=== PATIENT | female | born 1990 | race Caucasian/White ===

== ENCOUNTER 2016-12-18 10:23 | Inpatient (IN) | payer OTHER ==
[2016-12-18] VITALS (39 sets, daily range): BP systolic 92–141; BP diastolic 50–100; PULSE 77–116; RESP 18–20; TEMP 97.8–99.3
[2016-12-18] MEDS ORDERED: NS 1000 ML IV PRN (11:00)
[2016-12-18] MEDS ORDERED: LACTATED RINGER'S 1000 ML INJ 1,000 ML IV SCH (11:00)
[2016-12-18] MEDS ORDERED: LACTATED RINGER'S 1000 ML IV SCH (11:00)
[2016-12-18] MEDS ORDERED: NS 500 ML BOLUS IV PRN (11:15)
[2016-12-18] MEDS ORDERED: LIDOCAINE HCL 1% 50 ML VIAL INFIL PRN (11:15)
[2016-12-18] MEDS ORDERED: LIDOCAINE HCL 1% 50 ML VIAL I-DERMAL PRN (11:15)
[2016-12-18] MEDS ORDERED: MISOPROSTOL 25 MCG SUPP VAGINAL ONE (11:15)
[2016-12-18] MEDS ORDERED: OXYTOCIN 30 UNITS 500ML PREMIX IV ONE (11:15)
[2016-12-18] MEDS ORDERED: LACTATED RINGER'S 1000 ML BOLUS IV PRN (11:15)
[2016-12-18] MEDS ORDERED: CITRIC ACID-SODIUM CITRATE LIQ 30 ML UDC PO SCH (11:15)
[2016-12-18] MEDS ORDERED: MINERAL OIL 10 ML VIAL TOP PRN (11:15)
[2016-12-18] MEDS ORDERED: ONDANSETRON HCL 4 MG/2 ML VIAL IV PRN (11:15)
[2016-12-18 12:19] LABS: AUTOMATED NEUTROPHIL # 7.9 TH/MM3 (1.8-7.7); BASOPHIL % 0.2 % (0.0-2.0); EOSINOPHIL % 0.5 % (0.0-4.0); HEMATOCRIT 34.5 % (35.0-46.0); HEMO FLAGS DIFF FINAL; LYMPHOCYTE # 1.4 TH/MM3 (1.0-4.8); MEAN CELL VOLUME 90.3 FL (80.0-100.0); MEAN CORPUSCULAR HEMOGLOBIN 31.3 PG (27.0-34.0); MEAN CORPUSCULAR HGB CONC 34.6 % (32.0-36.0); MONO % 7.3 % (0.0-8.0); PLATELET COUNT 166 TH/MM3 (150-450); RED BLOOD COUNT 3.82 MIL/MM3 (4.00-5.30); RED CELL DISTRIBUTION WIDTH 14.2 % (11.6-17.2); WHITE BLOOD COUNT 10.1 TH/MM3 (4.0-11.0)
[2016-12-18 12:36] LABS: BACTERIA, URINE FEW /hpf; BLOOD, URINE TRACE (NEG); COMMENT (UR) CULT NOT INDICATED; CULTURE IF INDICATED CULT NOT INDICATED; GLUCOSE,URINE NEG (NEG); KETONE, URINE NEG (NEG); MUCUS URINE FEW /lpf (OCC); NITRITE,URINE NEG (NEG); SQUAMOUS EPITHELIAL CELL URINE 1 /hpf (0-5); URINE COLOR YELLOW (YELLW/STRAW)
--- NOTE | 2016-12-18 15:23 | PD.LABORPN ---
Subjective Subjective pt feeling comfortable, irregular contractions, very mild, 1/10 pain scale Objective Vital Signs Vital Signs Date Time Temp Pulse Resp B/P Pulse Ox O2 Delivery O2 Flow Rate FiO2 12/18/16 11:56 90 110/81 12/18/16 10:45 98.1 18 12/18/16 10:38 90 123/76 Objective Pelvic Exam: Cervix: [mid] Dilatation: [3] Effacement: [50] Station: [-2] Presentation: [vtx] Membranes: AROM'd this check, clear Uterine Contractions: [irreg] FHT's: Category: [I] Baseline: [140s] Reactive: [y] Variability: [y] Decels: [n] Assessment/Plan Problem List: (1) Term Assessment and Plan 26 yo G1 with mendoza IUP at 40w1d, admit by Dr. Gerber for favorable Boggs score & term for induction 1) IOL: s/p cytotec x 1 at noon; AROM'd this check, will plan pitocin as needed , IUPC as needed 2) GBS neg 3) status: Cat I tracing, vtx note: Dr. Gerber dictated H&P, is it not yet available in system Ava Villavicencio MD Dec 18, 2016 15:23
[2016-12-18] MEDS ORDERED: OXYTOCIN 30 UNITS-500ML PREMIX 500 ML IV SCH (16:30)
[2016-12-18] MEDS ORDERED: fentaNYL 2MCG-BUPIV 0.125% INJ 100 ML ONE (17:37)
[2016-12-18] MEDS ORDERED: ePHEDrine/NS 25 MG/5 ML SYR ONE ×2 (17:41→17:55)
[2016-12-18] MEDS ORDERED: BUPIVACAINE HCL PF 0.25% 10 ML VIAL ONE ×2 (17:54→23:46)
[2016-12-18] MEDS ORDERED: ePHEDrine/NS 50 MG/5 ML SYR IV PRN (18:45)
[2016-12-18] MEDS ORDERED: DO NOT ADMINISTER ANTICOAGULANTS XX PRN (18:45)
[2016-12-18] MEDS ORDERED: NO SYSTEM NARCOTICS XX PRN (18:45)
[2016-12-18] MEDS ORDERED: fentaNYL 2MCG-BUPIV 0.125% INJ 100 ML EPIDURAL SCH (18:45)
--- NOTE | 2016-12-19 00:53 | PD.OB.DELI ---
Delivery Date: Dec 19, 2016 Anesthesia: Epidural Episiotomy: Midline Vaginal Delivery: Vacuum Presentation: Occiput posterior Nuchal Cord: None Delayed cord clamping (45 sec): No : Male One Minute : 8 Five Minute : 9 Weight: 8# Care: Spontaneous crying, Responded to stimulation Placenta: Spontaneous delivery, Intact, 3 vessel cord Laceration: Episiotomy (midline), 2 deg Repair: Chromic running Additional Information vacuum applied with one pop-off; successful Ava River MD Dec 19, 2016 00:53
[2016-12-19 00:55] VITALS: BP 114/64; PULSE 82; RESP 18
--- NOTE | 2016-12-19 00:55 | HHI.DCPOC ---
Discharge Care Plan Diagnosis: (1) Status post vacuum-assisted vaginal delivery Your Health Problems Are: Vaginal delivery Report Symptoms to Your Doctor -Temperate above 100.5 degrees -Redness, of incision or excessive or foul smelling drainage -Unusual pain or calf pain -Increased vaginal bleeding -Painful or difficulty urinating -Feelings of extreme sadness or anxiety after 2 weeks Goals to Promote Your Health * To prevent worsening of your condition and complications * To maintain your health at the optimal level Directions to Meet Your Goals Take your medications as prescribed Follow your dietary instruction Follow activity as directed Ensure plenty of rest for recovery Drink fluids for hydration Keep your appointments as scheduled Take your immunizations and boosters as scheduled If your symptoms worsen call your PCP, if no PCP go to Urgent Care Center or Emergency Room Smoking is Dangerous to Your Health. Avoid second hand smoke Call the 24-hour crisis hotline for domestic abuse at Ava Villavicencio MD Dec 19, 2016 00:55
[2016-12-19] MEDS ORDERED: IBUP-232 PO (00:56)
[2016-12-19] MEDS ORDERED: SENN1TAB PO (00:56)
[2016-12-19] MEDS ORDERED: oxyCODONE/ACETAMINOPHEN 5 MG/325 MG TAB PO PRN (01:00)
[2016-12-19] MEDS ORDERED: ACETAMINOPHEN 325 MG TAB PO PRN (01:00)
[2016-12-19] MEDS ORDERED: SODIUM CHLORIDE 0.9% FLUSH 5 ML FLUSH IV SCH (01:00)
[2016-12-19] MEDS ORDERED: ALUMINUM/MAGNESIUM/SIMETH 30 ML CUP PO PRN (01:00)
[2016-12-19] MEDS ORDERED: SODIUM CHLORIDE 0.9% FLUSH 5 ML FLUSH IV PRN (01:00)
[2016-12-19] MEDS ORDERED: ONDANSETRON ODT 4 MG TAB PO PRN (01:00)
[2016-12-19] MEDS ORDERED: WITCH HAZEL 50%/GLYCERIN 12.5% 40 PAD JAR TOPICAL PRN (01:00)
[2016-12-19] MEDS ORDERED: BENZOCAINE 20% TOPICAL SPRAY 60 ML CAN TOPICAL PRN (01:00)
[2016-12-19] MEDS ORDERED: ZOLPIDEM TARTRATE 5 MG TAB PO PRN (01:00)
[2016-12-19 01:10] VITALS: RESP 18
[2016-12-19 01:25] VITALS: RESP 18
[2016-12-19] MEDS ORDERED: ONDANSETRON HCL 4 MG/2 ML VIAL ONE (02:30)
[2016-12-19] MEDS: IBUPROFEN 600 MG TAB PO PRN ×4 (03:01→21:06)
[2016-12-19] MEDS: oxyCODONE/ACETAMINOPHEN 5 MG/325 MG TAB PO PRN ×4 (03:02→21:05)
[2016-12-19 03:55] VITALS: BP 110/67; PULSE 78; RESP 18; TEMP 98
[2016-12-19] MEDS ORDERED: AMMONIA AROMATIC INHALANT 0.33 ML ONE (05:11)
[2016-12-19 08:00] VITALS: BP 123/71; PULSE 100; RESP 18; TEMP 98.4
[2016-12-19] MEDS: DOCUSATE SODIUM 50 MG/SENNA 8.6 MG TAB PO SCH ×2 (09:00→21:06)
[2016-12-19] MEDS ORDERED: DIPHTH/TETANUS/ACEL PERTUSSIS (BOOSTER) 0.5 ML VIAL/PFS IM ONE (16:00)
[2016-12-19] MEDS ORDERED: MEASLES, MUMPS, RUBELLA VACCINE 0.5 ML VIAL SQ ONE (16:00)
[2016-12-19 19:41] VITALS: BP 115/71; PULSE 84; RESP 18; TEMP 98
[2016-12-20] MEDS: IBUPROFEN 600 MG TAB PO PRN ×2 (03:03→08:48)
[2016-12-20] MEDS ORDERED: OXYC1TAB63 PO (09:38)
--- NOTE | 2016-12-20 09:45 | HHI.OB ---
Subjective Post Day: 1 Remarks s/p VAVD at just after midnight yesterday Objective Vitals/I&O Vital Signs Date Time Temp Pulse Resp B/P Pulse Ox O2 Delivery O2 Flow Rate FiO2 12/19/16 19:41 98.0 84 18 115/71 Objective Remarks GENERAL: Well-nourished, well-developed patient. CARDIOVASCULAR: Regular rate and rhythm without murmurs, gallops, or rubs. RESPIRATORY: Breath sounds equal bilaterally. No accessory muscle use. ABDOMEN/GI: Abdomen soft, non-tender. Fundus: Firm, non-tender at umbilicus. GENITOURINARY: Light bleeding. EXTREMITIES: No cyanosis or edema, non-tender, without signs of DVT. Medications and IVs Current Medications Medications (Trade) Dose Ordered Sig/Rell Route Start Time Stop Time Status Last Admin (NS Flush) 2 ml BID IV 12/19/16 01:00 (NS Flush) 2 ml UNSCH PRN IV 12/19/16 01:00 (Tylenol) 650 mg Q4H PRN PO 12/19/16 01:00 (Motrin) 600 mg Q6H PRN PO 12/19/16 01:00 12/20/16 08:48 (Percocet 5-325 Mg) 1 tab Q4H PRN PO 12/19/16 01:00 12/20/16 06:44 (Percocet 5-325 Mg) 2 tab Q4H PRN PO 12/19/16 01:00 12/19/16 21:05 (Americaine 20% Top Spr) 1 spray Q4H PRN TOPICAL 12/19/16 01:00 12/19/16 21:07 (Tucks Pads) 1 applic QID PRN TOPICAL 12/19/16 01:00 12/19/16 03:02 (Marlen-Colace) 2 tab Q12H PO 12/19/16 09:00 12/19/16 21:06 (Ambien) 5 mg HS PRN PO 12/19/16 01:00 (Mag-Al Plus Susp Liq) 15 ml Q8H PRN PO 12/19/16 01:00 (Zofran Odt) 4 mg Q6H PRN PO 12/19/16 01:00 Assessment/Plan Problem List: (1) Status post vacuum-assisted vaginal delivery (2) Term Assessment and Plan PPD#1, already >30 hours desires d/c to home today cleared by peds reviewed PP precautions, activity restrictions will see in office in 2 wks for mood check & 6 wks for final PP visit Discharge Planning routine Ava Villavicencio MD Dec 20, 2016 09:45
== END 2016-12-20 12:10 | disposition home or self-care (01) | DRG 775 ==
LOC: H2EA 10:23 → H1EA 12-19 03:36
PROVIDERS: ADMIT Obstetrics & Gynecology; ATTEND Obstetrics & Gynecology
PROC: 10907ZC Drainage of Amniotic Fluid, Therapeutic from Products of Conception, Via Natural or Artificial Opening (ICD-10-PCS; 2016-12-18)
PROC: 3E0P7GC Introduction of Other Therapeutic Substance into Female Reproductive, Via Natural or Artificial Opening (ICD-10-PCS; 2016-12-18)
PROC: 00HU33Z Insertion of Infusion Device into Spinal Canal, Percutaneous Approach (ICD-10-PCS; 2016-12-18)
PROC: 3E0R3CZ (ICD-10-PCS; 2016-12-18)
PROC: 10D07Z6 Extraction of Products of Conception, Vacuum, Via Natural or Artificial Opening (ICD-10-PCS; principal; 2016-12-19)
PROC: 0W8NXZZ Division of Female Perineum, External Approach (ICD-10-PCS; 2016-12-19)
DX: O48.0 Post-term pregnancy (principal); Z37.0 Single live birth; Z3A.40 40 weeks gestation of pregnancy
CPT/HCPCS: 59025; 81001; 85025; 86900; 86901; 90715; J2405; J2590; J3010; J7120

== ENCOUNTER 2018-05-23 14:40 | Inpatient (IN) ==
[2018-05-23] MEDS ORDERED: Morphine Inj 4 MG/ML Vial IV.PUSH ONE ×2 (15:17→21:49)
[2018-05-23] MEDS ORDERED: Sod Chloride 0.9% Inj 1,000 ML IV.SIG ONE (15:17)
--- NOTE | 2018-05-23 15:43 | ED ---
HPI General Chief Complaint: Abdominal Pain Stated Complaint: medical Time Seen by Provider: 05/23/18 15:17 Source: patient Mode of arrival: ambulatory Limitations: no limitations History of Present Illness MD complaint: abdominal pain Onset (ago): hour(s) (2) Pain Consistency: constant Location: RLQ Severity: severe Quality: sharp Radiation: none Migration to: no migration Relieving factors: nothing Exacerbating factors: nothing Context: other (about 16 weeks ) Associated symptoms: nausea and vomiting Related Data Patient : Yes Home Medications Medication Instructions Recorded Confirmed vit,[id number] 1 tab PO DAILY 05/23/18 05/23/18 [Prenatabs FA] Previous Rx's Medication Instructions Recorded meperidine [Demerol] 50 mg PO Q4-6H PRN #10 tab 05/25/18 Allergies Allergy/AdvReac Type Severity Reaction Status Date / Time cefepime Allergy Severe Anaphylaxis Verified 05/24/18 01:58 ceftaroline fosamil Allergy Severe Anaphylaxis Verified 05/24/18 01:58 Review of Systems Except as stated in HPI: all other systems reviewed are negative [facility] Medical History Medical History No significant past medical history (Acute) Surgical History Surgical History Hx of appendectomy (Acute) Hx of tonsillectomy (Acute) Social History Social History Substance History: No History of Abuse Second Hand Smoke Exposure: No Smoking Status: Never smoker How Often Do You Have a Drink Containing Alcohol: Never Recent Travel in [facility] within the Last 8 Weeks: No Exam Const General: healthy appearing and acute distress severe Nutritional Appearance: average body habitus Orientation: alert, awake and oriented x3 HENMT Head: normal to inspection, normocephalic and atraumatic Eyes General: appearance normal, both eyes and all related structures EOM: EOM intact bilaterally Neck Neck: full ROM and supple Chest Chest: normal inspection of the chest Resp Effort & Inspection: normal respiratory effort and able to speak in complete sentences Cardio Rate: regular rate Rhythm: regular rhythm GI Inspection: normal to inspection Palpation: tender in the RLQ Speculum Exam - Vagina: normal appearance of the vagina Speculum Exam - Cervix: normal appearance of the cervix Back/Spine/Pelvis Cervical Spine: cervical ROM normal Thoracic/Lumbar Spine: thoraco-lumbar ROM normal Skin General: no rashes or lesions noted and turgor normal Neuro General: alert, awake, oriented x3, moves all extremities and CN's II-XI intact bilaterally Extrem General: normal to inspection and full ROM Psych Appearance: grossly normal Mental Status: mental status grossly normal Speech and Movement: speech and movement normal Mood: congruent mood Affect: anxious affect Attitude: cooperative Thought Process: normal Thought Content: normal Judgment: judgment good Procedures Ultrasound POC Ultrasound Procedure: Emergency Department Pelvic ultrasound was performed with patient consent. The curvilinear probe was used in the transverse and sagittal views within the suprapubic region revealing + intrauterine . heart tones and movement were noted. I was unable to calculate the heart rate because of both patient and movement. However, the heart rate appeared normal. Course Reevaluation(s) Reevaluation #1: Patient reports her pain is not any better following morphine. I have ordered Dilaudid. Time: 16:02 Initial Documented Vital Signs Pulse Oximetry 100 05/23/18 15:44 Last Documented Vital Signs Temperature 97.8 F 05/25/18 08:00 Pulse Rate 90 05/25/18 08:05 Respiratory Rate 17 05/25/18 08:00 Blood Pressure 111/61 05/25/18 08:05 Pulse Oximetry 100 05/24/18 06:47 Critical Care Time Critical Care Time: Yes Total Critical Care Time: 45 Attestation: Aggregate critical care time was 45 minutes. Time to perform other separately billable procedures was not included in the critical care time. My time did not include minutes spent treating any other patients simultaneously or on activities that did not directly contribute to the patient's treatment. The services I provided to this patient were to treat and/or prevent clinically significant deterioration that could result in: , decompensation, deterioration I provided critical care services requiring my management, as noted below: Chart data review, documentation time, medication orders and management, vital sign assessments/reviewing monitor data, ordering and reviewing lab tests, ordering and interpreting/reviewing x-rays and diagnostic studies, care of the patient and discussion of the patient with the admitting physicians. Sign Out Sign Out Data: Patient Sign Out occurred on 05/23/18 at 17:18. Patient's care was discussed, and care was transferred from Bhargavi Allen to Marian Hammonds. Sign Out Comment: This is a patient who is almost 16 weeks by dates who presents with the acute onset of severe right lower quadrant abdominal pain. UA and ultrasound are pending. Last updated by Bhargavi Allen at 05/23/18 17:16 Post-Handoff Eval: Patient with sent out to me by Dr. Allen at change of shift. Patient pending UA as well as pelvic US Pelvic ultrasound showed prominence of the collecting system of the right kidney and a mild amount of perinephric fluid. UA: few bacteria, few mucous, neg nitrites, 80 ketones, neg leuk esterase Patient with continued pain, crying on eval. she has received morphine as well as Dilaudid for her pain with mild relief. MRI of abdomen ordered. MRI of abdomen with moderate hydronephrosis and dilation of proaximal right ureter down to the level of L3. There is perinephric fluid suggesting pyelosinus extravasation - this suggests possibility of an obstructing stone. I did perform a pelvic exam with RN at bedside, patient with no CMT or adnexal tenderness, I do not think that patient has ovarian torsion Patient describes her pain worse than being in labor with her first child. Reports relief when she has morphine for an hour and then reports return of pain. Patient's pain most likely from the kidney stone as all studies suggest hydronephrosis of the right ureter. Patients subway train driver is Dr. Villavicencio Case reviewed with Dr. Castanon who request admission to medicine service for pain control Case reviewed with Dr. Thapa who accepts pt to service Medical Decision Making MDM Narrative Medical decision making narrative: This patient is about 16 weeks . She presents with the acute onset of right lower quadrant abdominal pain. It is associated with some nausea and vomiting. She denies any vaginal discharge or bleeding. She reports that the pain has been constant and severe since its onset. She states that she has had a previous and that the pain does not feel like contractions. She appears to be in obvious distress related to her pain. An IV has been started and she has been given IV morphine. She refused Zofran because of . She is concerned about defects. Abdominal ultrasound is pending. Routine abdominal pain labs are also pending. Differential Diagnosis Differential Diagnosis: Differential diagnosis of abdominal pain includes but is not limited to gastritis, pancreatitis, hepatitis, gastroenteritis, constipation, urinary retention, peptic ulcer disease, diverticulitis or appendicitis Lab Data Lab results reviewed: Yes I reviewed the patient's lab results. Result diagrams: 05/25/18 05:10 07/18/18 05:10 Lab Results 05/23/18 05/23/18 05/23/18 Range/Units 15:50 15:50 20:05 WBC 12.6 H (4.0-11.0) th/mm3 RBC 4.32 (4.00-5.30) mil/mm3 Hgb 13.4 (11.6-15.3) gm/dL Hct 39.4 (35.0-46.0) % MCV 91.2 (80.0-100.0) fL MCH 30.9 (27.0-34.0) pg MCHC 33.9 (32.0-36.0) % RDW 13.7 (11.6-17.2) % Plt Count 212 (150-450) th/mm3 MPV 9.3 (7.0-11.0) fL Neut % (Auto) 91.1 H (16.0-70.0) % Lymph % (Auto) 5.6 L (9.0-44.0) % [place] % (Auto) 3.1 (0.0-8.0) % Eos % (Auto) 0.0 (0.0-4.0) % Baso % (Auto) 0.2 (0.0-2.0) % Neut # (Auto) 11.5 H (1.8-7.7) th/mm3 Lymph # (Auto) 0.7 L (1.0-4.8) th/mm3 Knott # (Auto) 0.4 (0.0-0.9) th/mm3 Eos # (Auto) 0.0 (0.0-0.4) th/mm3 Baso # (Auto) 0.0 (0.0-0.2) th/mm3 WBC Differential . Differential Comment Auto diff final Sodium 139 (136-145) meq/L Potassium 3.4 L (3.5-5.1) meq/L Chloride 105 (98-107) meq/L Carbon Dioxide 19.2 L (21.0-32.0) meq/L Anion Gap 15 (5-15) meq/L BUN 8 (7-18) mg/dL Creatinine 0.53 (0.50-1.00) mg/dL Estimated GFR Greater than 89 (>89) mL/min Random Glucose 108 H (74-106) mg/dL Calcium 8.8 (8.5-10.1) mg/dL Total Bilirubin 0.3 (0.2-1.0) mg/dL AST 14 L (15-37) U/L ALT 25 (10-53) U/L Alkaline Phosphatase 52 (45-117) U/L Total Protein 7.3 (6.4-8.2) g/dL Albumin 3.9 (3.4-5.0) g/dL Urine Color Yellow (Yellw/Straw) Urine Clarity Clear (Clear) Urine pH 6.0 (5.0-8.5) Ur Specific [place] 1.015 (1.002-1.035) Urine Protein Negative (Neg-Trace) mg/dL Urine Glucose (UA) 50 (Negative) mg/dL Urine Ketones 80 or greater (Negative) mg/dL Urine Occult Blood Negative (Negative) Urine Nitrate Negative (Negative) Urine Bilirubin Negative (Negative) Urine Urobilinogen Less than 2 (Less than 2) mg/dL Ur Leukocyte Esterase Negative (Negative) Urine RBC 1 (0-3) /hpf Urine WBC 2 (0-5) /hpf Ur Squamous Epith Cells <1 (0-5) /hpf Micro UA Comment Cath-culture not ind Urine Culture Comments Cath-cult not ind 05/25/18 05/25/18 Range/Units 05:10 05:10 WBC 9.1 (4.0-11.0) th/mm3 RBC 3.45 L (4.00-5.30) mil/mm3 Hgb 10.9 L D (11.6-15.3) gm/dL Hct 31.5 L (35.0-46.0) % MCV 91.2 (80.0-100.0) fL MCH 31.6 (27.0-34.0) pg MCHC 34.7 (32.0-36.0) % RDW 13.5 (11.6-17.2) % Plt Count 177 (150-450) th/mm3 MPV 9.0 (7.0-11.0) fL Neut % (Auto) 79.6 H (16.0-70.0) % Lymph % (Auto) 13.4 (9.0-44.0) % [place]t % (Auto) 6.7 (0.0-8.0) % Eos % (Auto) 0.1 (0.0-4.0) % Baso % (Auto) 0.2 (0.0-2.0) % Neut # (Auto) 7.3 (1.8-7.7) th/mm3 Lymph # (Auto) 1.2 (1.0-4.8) th/mm3 Knott # (Auto) 0.6 (0.0-0.9) th/mm3 Eos # (Auto) 0.0 (0.0-0.4) th/mm3 Baso # (Auto) 0.0 (0.0-0.2) th/mm3 WBC Differential . Differential Comment Auto diff final Sodium 139 (136-145) meq/L Potassium 3.2 L (3.5-5.1) meq/L Chloride 108 H (98-107) meq/L Carbon Dioxide 19.6 L (21.0-32.0) meq/L Anion Gap 11 (5-15) meq/L BUN 4 L (7-18) mg/dL Creatinine 0.32 L (0.50-1.00) mg/dL Estimated GFR Greater than 89 (>89) mL/min Random Glucose 85 (74-106) mg/dL Calcium 8.3 L (8.5-10.1) mg/dL Total Bilirubin (0.2-1.0) mg/dL AST (15-37) U/L ALT (10-53) U/L Alkaline Phosphatase (45-117) U/L Total Protein (6.4-8.2) g/dL Albumin (3.4-5.0) g/dL Urine Color (Yellw/Straw) Urine Clarity (Clear) Urine pH (5.0-8.5) Ur Specific [place] (1.002-1.035) Urine Protein (Neg-Trace) mg/dL Urine Glucose (UA) (Negative) mg/dL Urine Ketones (Negative) mg/dL Urine Occult Blood (Negative) Urine Nitrate (Negative) Urine Bilirubin (Negative) Urine Urobilinogen (Less than 2) mg/dL Ur Leukocyte Esterase (Negative) Urine RBC (0-3) /hpf Urine WBC (0-5) /hpf Ur Squamous Epith Cells (0-5) /hpf Micro UA Comment Urine Culture Comments Imaging Data Radiologist's impression: Abdomen Ultrasound 05/23/18 15:18 CONCLUSION: 1. Minimal prominence of the collecting system of the right kidney and mild amount of perinephric fluid. 2. Hepatomegaly without focal lesion. Abdomen MRI 05/23/18 21:08 CONCLUSION: 1. Abnormal appearance to the right kidney with moderate hydronephrosis and dilation of the proximal right ureter down to the level of L3 (the uterus extends up to the L4-5 level). There is also perinephric fluid suggesting pyelosinus extravasation. Since the level of obstruction is superior to the uterus, this suggests the possibility of an obstructing stone (stones may be nondetectable on MR). Abdomen/Bladder Ultrasound 05/24/18 00:00 CONCLUSION: 1. There continues to be dilation of the collecting system and proximal ureter on the right. Dilation appears similar in appearance compared to previous MRI dated 05/23/2018. On the right. 2. Bilateral ureteral jets were identified within the bladder. Discharge Plan Discharge Disposition Patient Disposition: 30 Still Patient Discharge Condition Condition: Fair Discharge Order Discharge Orders: Discharge Order (Routine); Ordered 05/25/18 Ordered By: Anne Farfan PERSONAL SHOPPER Clear for Discharge (Routine); Ordered 05/25/18 Ordered By: Anne Farfan Discharge Details Anticipated Discharge Date: 05/25/18 Discharge Comment: at noon if pain is still minimal Physicians Team ED Provider: Marian Hammonds Primary Care Provider: UNKNOWN, Attending Provider: Christian Nieto Other Providers: Rachel Larsen Samuel M Status ED Status: Left Department Discharge Information Discharge Date/Time: 05/24/18 11:11
[2018-05-23] MEDS ORDERED: HYDROmorphone PF Inj 2 MG/ML Vial IV.PUSH ONE (16:01)
[2018-05-23 16:33] LABS: Baso % (Auto) 0.2 % (0.0-2.0); Hematocrit 39.4 % (35.0-46.0); Hemoglobin 13.4 gm/dL (11.6-15.3); Lymph # (Auto) 0.7 th/mm3 (1.0-4.8); Lymph % (Auto) 5.6 % (9.0-44.0); Mean Corpuscular HGB Conc 33.9 % (32.0-36.0); Mean Corpuscular Hemoglobin 30.9 pg (27.0-34.0); Mean Corpuscular Volume 91.2 fL (80.0-100.0); Mean Platelet Volume 9.3 fL (7.0-11.0); Mono # (Auto) 0.4 th/mm3 (0.0-0.9); Mono % (Auto) 3.1 % (0.0-8.0); Neut # (Auto) 11.5 th/mm3 (1.8-7.7); Neut % (Auto) 91.1 % (16.0-70.0); Platelet Count 212 th/mm3 (150-450); Red Blood Count 4.32 mil/mm3 (4.00-5.30); Red Cell Distribution Width 13.7 % (11.6-17.2); White Blood Count 12.6 th/mm3 (4.0-11.0)
[2018-05-23 16:52] LABS: Alanine Aminotransferase 25 U/L (10-53); Albumin 3.9 g/dL (3.4-5.0); Anion Gap 15 meq/L (5-15); Aspartate Aminotransferase 14 U/L (15-37); Blood Urea Nitrogen 8 mg/dL (7-18); Calcium 8.8 mg/dL (8.5-10.1); Carbon Dioxide 19.2 meq/L (21.0-32.0); Chloride 105 meq/L (98-107); Glomerular Filtration Rate Greater Than 89 mL/min (>89); Glucose,Random 108 mg/dL (74-106); Potassium 3.4 meq/L (3.5-5.1); Sodium 139 meq/L (136-145)
[2018-05-23 16:54] LABS: Alkaline Phosphatase 52 U/L (45-117); Total Protein 7.3 g/dL (6.4-8.2)
--- NOTE | 2018-05-23 19:33 | US ---
EXAM DATE: 05/23/2018 6:20 PM EDT AGE/SEX: 28 years / Female INDICATIONS: Abdominal pain. CLINICAL DATA: This is the patient's initial encounter. Patient reports that signs and symptoms have been present for 1 day and indicates a pain score of 9/10. MEDICAL/SURGICAL HISTORY: . Abdominal pain. None. COMPARISON: No prior exams available for comparison. MEASUREMENTS: Liver:__ 16.8 cm. Common Bile Duct:___ 3mm. Right Kidney:___12.5 x 6.4 x 6.8 cm. Left Kidney:___14.6 x 5.4 x 5.1 cm. Spleen:___14.3 cm. FINDINGS: Liver: Normal echotexture without focal lesion or ductal dilatation. Portal Vein: Hepatopedal flow seen in portal vein. Common Duct: No intraluminal mass or stone visualized. Gallbladder: Demonstrates no wall thickening or pericholecystic fluid. No stones visualized. Pancreas: The visualized portions are within normal limits Right Kidney: Mild prominence of the collecting system of the kidney with preservation of renal sinu s fat and no distention. There is a small amount of subcapsular fluid about the midpole of the kidney . Left Kidney: Normal echotexture and cortical thickness. No mass or hydronephrosis. Ascites: None Pleural Effusion: None Spleen: No focal lesion. Aorta: Non aneurysmal. IVC: Within normal limits Other: None. CONCLUSION: 1. Minimal prominence of the collecting system of the right kidney and mild amount of perinephric fl uid. 2. Hepatomegaly without focal lesion. Electronically signed by: Gunner Miguel MD 05/23/2018 7:32 PM EDT
[2018-05-23 20:22] LABS: Bilirubin,Urine Negative (Negative); Clarity,Urine Clear (Clear); Color,Urine Yellow (Yellw/Straw); Glucose,Urine (UA) 50 mg/dL (Negative); Leukocyte Esterase,Urine Negative (Negative); Nitrite,Urine Negative (Negative); Specific Gravity,Urine 1.015 (1.002-1.035); Squamous Epithelial Cell,Urine <1 /hpf (0-5)
--- NOTE | 2018-05-23 23:53 | MR ---
EXAM DATE: 05/23/2018 11:28 PM EDT AGE/SEX: 28 years / Female INDICATIONS: Abdominal pain. CLINICAL DATA: This is the patient's initial encounter. Patient reports that signs and symptoms have been present for 1 day and indicates a pain score of 8/10. MEDICAL/SURGICAL HISTORY: . Tonsillectomy. COMPARISON: No prior exams available for comparison. TECHNIQUE: Multiplanar, multisequence images of the abdomen was performed without contrast. FINDINGS: The patient is and MR examination was performed to characterize prominence of the collecting system of the right kidney seen on ultrasound. Examination demonstrates moderate hydronephrosis on t he right side and dilation of the proximal right ureter down to the level of L3. There is also mild p erinephric fluid in the pararenal space on the right side. The ureter distal to L3 is not dilated. Th e uterus extends up to the level of L4-5. There is an intrauterine ; the examination is not intended to evaluate the intrauterine . No dilated loops of small or large bowel. Bladder co ntours are smooth. History of appendectomy. No filling defects seen within the gallbladder.. CONCLUSION: 1. Abnormal appearance to the right kidney with moderate hydronephrosis and dilation of the proximal right ureter down to the level of L3 (the uterus extends up to the L4-5 level). There is also perine phric fluid suggesting pyelosinus extravasation. Since the level of obstruction is superior to the ut erus, this suggests the possibility of an obstructing stone (stones may be nondetectable on MR). Electronically signed by: Gunner Miguel MD 05/23/2018 11:52 PM EDT
[2018-05-24] MEDS ORDERED: Morphine Inj 4 MG/ML Vial IV.PUSH ONE (00:24)
[2018-05-24] MEDS ORDERED: Temazepam 15 MG Capsule PO PRN (02:03)
[2018-05-24] MEDS ORDERED: Bisacodyl 10 MG Supp RECTAL PRN (02:03)
[2018-05-24] MEDS: Sod Chloride 0.9% Inj 1,000 ML IV.CONT SCH ×2 (02:20→14:30)
--- NOTE | 2018-05-24 03:16 | P.HP ---
History of Present Illness Service: [facility] Primary Care Physician: UNKNOWN Chief Complaint: Abdominal pain History of Present Illness: 28-year-old female at 16 weeks gestational age presents to the emergency department for the evaluation of right-sided lower quadrant abdominal pain and back pain. The patient endorses accompanying nausea/vomiting. Positive chills. No fever. No dysuria. No chest pain or shortness of breath. No diarrhea. Inpatient Certification: I certify that the inpatient services were ordered in accordance with Medicare regulations governing the order. This includes certification that hospital inpatient services are reasonable and necessary and in the case of services not specified as inpatient-only under 42 CFR 419.22(n), that they are appropriately provided as inpatient services in accordance to with the 2-midnight benchmark under 43 CFR 412.3(e) Estimated Total Length of Stay (Days): 1 Plans for Post Hospital Care: Home Review of Systems All other systems reviewed negative except as stated in HPI [facility] - History History Provided By: Patient - Medical History Medical History: Medical History (Last Updated 05/24/18 @ 03:12 by Marian Thapa MD) No significant past medical history - Surgical History Surgical History: Surgical History (Last Updated 05/24/18 @ 03:12 by Marian Thapa MD) Hx of appendectomy Hx of tonsillectomy - Tobacco History Second Hand Smoke Exposure: No Tobacco Use In Past 30 Days: No Smoking Status: Never smoker - Alcohol History How Often Do You Have a Drink Containing Alcohol: Never - Substance Use History Substance History: No History of Abuse - Travel History Recent Travel in the [facility] Within the Last 8 Weeks: No - Immunization History Tetanus Immunization: <5 Years Medications and Allergies Active Medications: Active Medications Acetaminophen (Tylenol) 650 mg PO Q4H PRN PRN Reason: Temp > 100.4 Al Hydroxide/Mg Hydroxide (Milk Of Magnesia Liq) 30 ml PO Q12H PRN PRN Reason: Mild Constipation Bisacodyl (Dulcolax Supp) 10 mg RECTAL DAILY PRN PRN Reason: SEVERE CONSITIPATION Hydromorphone HCl (Dilaudid Pf Inj) 1 mg IV.PUSH Q4H PRN PRN Reason: PAIN 6-10 Sodium Chloride (Ns Inj) 1,000 mls @ 100 mls/hr IV.CONT .Q10H BRUNO Last Admin: 07/17/18 02:20 Dose: 100 mls/hr Lactulose (Lactulose Liq) 30 ml PO DAILY PRN PRN Reason: SEVERE CONSITIPATION Ondansetron HCl (Zofran Odt) 4 mg PO Q6H PRN PRN Reason: NAUSEA OR VOMITING Senna/Docusate Sodium (Marlen-Colace) 1 tab PO BID BRUNO Sennosides (Senokot) 17.2 mg PO Q12H PRN PRN Reason: Moderate Constipation Sodium Chloride (Ns Flush) 2 ml IV.FLUSH PRN PRN PRN Reason: FLUSH AFTER USING IV ACCESS Temazepam (Restoril) 15 mg PO HS PRN PRN Reason: INSOMNIA Last Admin: 05/24/18 02:32 Dose: 15 mg Allergies Allergy/AdvReac Type Severity Reaction Status Date / Time cefepime Allergy Severe Anaphylaxis Verified 05/24/18 01:58 ceftaroline fosamil Allergy Severe Anaphylaxis Verified 05/24/18 01:58 Home Medications Medication Instructions Recorded Confirmed Type vit,[id number] 1 tab PO DAILY 05/23/18 05/23/18 History [Prenatabs FA] Exam Vital signs: Vital Signs 05/23/18 15:44 05/23/18 15:54 05/23/18 18:50 Temperature 98.9 F Pulse Rate 75 90 Respiratory Rate 17 17 Blood Pressure 117/76 Pulse Oximetry 100 98 100 05/23/18 22:30 05/24/18 00:35 05/24/18 02:33 Temperature 98.6 F Pulse Rate 85 107 H Respiratory Rate 18 21 20 Blood Pressure 112/74 110/62 Pulse Oximetry 100 Intake & Output 05/23/18 05/23/18 05/24/18 06:59 18:59 06:59 Weight 70.307 kg Narrative: Gen.: No acute distress Head: Normocephalic. Atraumatic. EENT: Pupils equal round and reactive to light. Nose without drainage. Airway intact. Throat without injection. Cardiovascular: Regular rate and rhythm. No murmurs, rubs or gallops. Respiratory: Lungs clear to auscultation bilaterally. No wheezes or rhonchi. Abdomen: Soft, tender to palpation worse in the right lower quadrant, nondistended. No peritoneal signs. : Right-sided CVA tenderness Musculoskeletal: No gross deformities. No edema. Skin: No obvious rashes or erythema. Neuro: Sensory and motor grossly intact. Cranial nerves II through XII grossly intact. Psych: Appropriate mood and affect Results - Labs CBC & Chem 7: 05/23/18 15:50 05/23/18 15:50 Labs: Laboratory Results - last 24 hr 05/23/18 05/23/18 05/23/18 15:50 15:50 20:05 WBC 12.6 H RBC 4.32 Hgb 13.4 Hct 39.4 MCV 91.2 MCH 30.9 MCHC 33.9 RDW 13.7 Plt Count 212 MPV 9.3 Neut % (Auto) 91.1 H Lymph % (Auto) 5.6 L [place] % (Auto) 3.1 Eos % (Auto) 0.0 Baso % (Auto) 0.2 Neut # (Auto) 11.5 H Lymph # (Auto) 0.7 L [place] # (Auto) 0.4 Eos # (Auto) 0.0 Baso # (Auto) 0.0 WBC Differential . Differential Comment Auto diff final Sodium 139 Potassium 3.4 L Chloride 105 Carbon Dioxide 19.2 L Anion Gap 15 BUN 8 Creatinine 0.53 Estimated GFR Greater than 89 Random Glucose 108 H Calcium 8.8 Total Bilirubin 0.3 AST 14 L ALT 25 Alkaline Phosphatase 52 Total Protein 7.3 Albumin 3.9 Urine Color Yellow Urine Clarity Clear Urine pH 6.0 Ur Specific [place] 1.015 Urine Protein Negative Urine Glucose (UA) 50 Urine Ketones 80 or greater Urine Occult Blood Negative Urine Nitrate Negative Urine Bilirubin Negative Urine Urobilinogen Less than 2 Ur Leukocyte Esterase Negative Urine RBC 1 Urine WBC 2 Ur Squamous Epith Cells <1 Micro UA Comment Cath-culture not ind Urine Culture Comments Cath-cult not ind - Imaging Impressions Abdomen Ultrasound 05/23/18 15:18 CONCLUSION: 1. Minimal prominence of the collecting system of the right kidney and mild amount of perinephric fluid. 2. Hepatomegaly without focal lesion. Abdomen MRI 05/23/18 21:08 CONCLUSION: 1. Abnormal appearance to the right kidney with moderate hydronephrosis and dilation of the proximal right ureter down to the level of L3 (the uterus extends up to the L4-5 level). There is also perinephric fluid suggesting pyelosinus extravasation. Since the level of obstruction is superior to the uterus, this suggests the possibility of an obstructing stone (stones may be nondetectable on MR). Caprini VTE Risk Assessment Caprini VTE Risk Assessment: No/Low Risk (score <= 1) Caprini Risk Assessment Model: Point Value = 1 Point Value = 2 Point Value = 3 Point Value = 5 Age 41-60 Minor surgery BMI > 25 kg/m2 Swollen legs Varicose veins or History of unexplained or recurrent spontaneous Oral contraceptives or hormone replacement Sepsis (< 1 month) Serious lung disease, including pneumonia (< 1 month) Abnormal pulmonary function Acute myocardial infarction Congestive heart failure (< 1 month) History of inflammatory bowel disease Medical patient at bed rest Age 61-74 Arthroscopic surgery Major open surgery (> 45 min) Laparoscopic surgery (> 45 min) Malignancy Confined to bed (> 72 hours) Immobilizing plaster cast Central venous access Age >= 75 History of VTE Family history of VTE Factor V Leiden Prothrombin [id number] Lupus anticoagulant Anticardiolipin antibodies Elevated serum homocysteine Heparin-induced thrombocytopenia Other congenital or acquired thrombophilia Stroke (< 1 month) Elective arthroplasty Hip, pelvis, or leg fracture Acute spinal cord injury (< 1 month) Prophylaxis Regimen: Total Risk Factor Score Risk Level Prophylaxis Regimen 0-1 Low Early ambulation 2 Moderate Order ONE of the following: *Sequential Compression Device (SCD) *Heparin 5000 units SQ BID 3-4 Higher Order ONE of the following medications: *Heparin 5000 units SQ TID *Enoxaparin/Lovenox 40 mg SQ daily (WT < 150 kg, CrCl > 30 mL/min) *Enoxaparin/Lovenox 30 mg SQ daily (WT < 150 kg, CrCl > 10-29 mL/min) *Enoxaparin/Lovenox 30 mg SQ BID (WT < 150 kg, CrCl > 30 mL/min) AND/OR *Sequential Compression Device (SCD) 5 or more Highest Order ONE of the following medications: *Heparin 5000 units SQ TID (Preferred with Epidurals) *Enoxaparin/Lovenox 40 mg SQ daily (WT < 150 kg, CrCl > 30 mL/min) *Enoxaparin/Lovenox 30 mg SQ daily (WT < 150 kg, CrCl > 10-29 mL/min) *Enoxaparin/Lovenox 30 mg SQ BID (WT < 150 kg, CrCl > 30 mL/min) AND *Sequential Compression Device (SCD) Assessment and Plan - Plan Assessment/plan: 1. Possible nephrolithiasis/abdominal pain/nausea/vomiting/hydronephrosis MRI of the abdomen significant for abnormal appearance of the right kidney with moderate hydronephrosis and dilation of the proximal right ureter with perinephric fluid, possible obstructing stone Urology consulted, appreciate assistance Dilaudid for pain 2. Patient at 16 weeks gestational age High [employer] Director is Dr. [place] OB consulted, appreciate recommendations FEN N.p.o. Electrolytes: Monitor and replete as needed NS at 100 cc/hour
[2018-05-24] MEDS: HYDROmorphone PF Inj 2 MG/ML Vial IV.PUSH PRN ×2 (06:32→10:27)
[2018-05-24] MEDS: Senna/Docusate Sodium 8.6/50 MG Tablet PO SCH ×2 (08:37→22:22)
--- NOTE | 2018-05-24 08:37 | P.HPOB ---
History of Present Illness Service: [facility] Primary Care Physician: UNKNOWN Chief Complaint: Abdominal pain History of Present Illness: 28-year-old female here with her mother in the [place] emergency department for suspected right kidney stone. She is at 15 weeks and 2 days by a 6 week ultrasound with estimated due date of 11/13/2018. Her is followed by local OB Dr. Villavicencio at [facility] [employer]. Her has been uncomplicated thus far. She states that around 11 AM yesterday she began to have a right sided abdominal pain/right flank pain that radiated down to her right lower quadrant, is intermittent but severe, shortly followed by nausea and vomiting, she feels like "she cannot get comfortable", sitting in a warm shower made the pain better. She presented to the ER last night for evaluation. She Has been given IV hydration, pain medicine and antiemetics She states that she had been sleeping prior to my arrival, she continues to be in pain but is better and somewhat resolved after she receives medication. Denies hematuria, urgency or frequency, denies fever or chills. Denies any history of kidney stones or complications this . No diarrhea or constipation. Most of my encounter and conversation was indirectly through her mother who is visibly upset and concerned about her daughter's well-being, she flew in from [facility] to be with her yesterday and is very concerned about the delay in evaluation by consulting physicians such as myself and urology. Past medical history: 1. Migraines Past surgical history: 1. Appendectomy and tonsillectomy Home Medications: 1. Vitamin B6 and Unisom for nausea in Allergies: 1. Cephalosporins states she has hives and a rash, first and only reaction was as a child Obstetrical history: 1. Laboratory 2017:40 weeks 2 days, vaginal delivery, male "[place]", 8 pounds. States was a vacuum-assisted vaginal delivery, baby was "stuck", no residual neurological or physical defects. Patient states she had a third degree laceration but, today she did not want to discuss if she had any fecal or urinary incontinence following delivery. - Delivery at [facility] per patient record [employer] history: - LMP 01/25/2018 Family history: - States mother and father have factor XI deficiency, no history of family or personal VTE. Social history: - Denies tobacco alcohol or drug use. - Inpatient Certification If this patient has been admitted as an Inpatient: I certify that the inpatient services were ordered in accordance with Medicare regulations governing the order. This includes certification that hospital inpatient services are reasonable and necessary and in the case of services not specified as inpatient-only under 42 CFR 419.22(n), that they are appropriately provided as inpatient services in accordance to with the 2-midnight benchmark under 43 CFR 412.3(e) Estimated Total Length of Stay (Days): 1 Plans for Post Hospital Care: Home Review of Systems All other systems reviewed negative except as stated in HPI [facility] - History History Provided By: Patient - Medical History Medical History: Medical History (Last Updated 05/24/18 @ 03:12 by Marian Thapa MD) No significant past medical history - Surgical History Surgical History: Surgical History (Last Updated 05/24/18 @ 03:12 by Marian Thapa MD) Hx of appendectomy Hx of tonsillectomy - Tobacco History Second Hand Smoke Exposure: No Tobacco Use In Past 30 Days: No Smoking Status: Never smoker - Alcohol History How Often Do You Have a Drink Containing Alcohol: Never - Substance Use History Substance History: No History of Abuse - Travel History Recent Travel in the [place] Within the Last 8 Weeks: No - Immunization History Tetanus Immunization: <5 Years Medications and Allergies Active Medications: Active Medications Acetaminophen (Tylenol) 650 mg PO Q4H PRN PRN Reason: Temp > 100.4 Al Hydroxide/Mg Hydroxide (Milk Of Magnesia Liq) 30 ml PO Q12H PRN PRN Reason: Mild Constipation Bisacodyl (Dulcolax Supp) 10 mg RECTAL DAILY PRN PRN Reason: SEVERE CONSITIPATION Hydromorphone HCl (Dilaudid Pf Inj) 1 mg IV.PUSH Q4H PRN PRN Reason: PAIN 6-10 Last Admin: 05/24/18 06:32 Dose: 1 mg Sodium Chloride (Ns Inj) 1,000 mls @ 100 mls/hr IV.CONT .Q10H BRUNO Last Admin: 05/24/18 02:20 Dose: 100 mls/hr Lactulose (Lactulose Liq) 30 ml PO DAILY PRN PRN Reason: SEVERE CONSITIPATION Ondansetron HCl (Zofran Odt) 4 mg PO Q6H PRN PRN Reason: NAUSEA OR VOMITING Senna/Docusate Sodium (Marlen-Colace) 1 tab PO BID BRUNO Sennosides (Senokot) 17.2 mg PO Q12H PRN PRN Reason: Moderate Constipation Sodium Chloride (Ns Flush) 2 ml IV.FLUSH PRN PRN PRN Reason: FLUSH AFTER USING IV ACCESS Temazepam (Restoril) 15 mg PO HS PRN PRN Reason: INSOMNIA Last Admin: 05/24/18 02:32 Dose: 15 mg Allergies Allergy/AdvReac Type Severity Reaction Status Date / Time cefepime Allergy Severe Anaphylaxis Verified 05/24/18 01:58 ceftaroline fosamil Allergy Severe Anaphylaxis Verified 05/24/18 01:58 Home Medications Medication Instructions Recorded Confirmed Type vit,[id number] 1 tab PO DAILY 05/23/18 05/23/18 History [Prenatabs FA] Exam Vital signs: Vital Signs 05/23/18 15:44 05/23/18 15:54 05/23/18 18:50 Temperature 98.9 F Pulse Rate 75 90 Respiratory Rate 17 17 Blood Pressure 117/76 Pulse Oximetry 100 98 100 05/23/18 22:30 05/24/18 00:35 05/24/18 02:33 Temperature 98.6 F Pulse Rate 85 107 H Respiratory Rate 18 21 20 Blood Pressure 112/74 110/62 Pulse Oximetry 100 05/24/18 06:47 Temperature Pulse Rate 78 Respiratory Rate 19 Blood Pressure 117/64 Pulse Oximetry 100 Intake & Output 05/23/18 05/24/18 05/24/18 18:59 06:59 18:59 Weight 70.307 kg Narrative: General: Alert and oriented, well nourished, no acute distress but tearful Skin: Skin is warm, dry and pink, no rashes or lesions. Eye: EOMI, normal conjunctiva HENT: Normocephalic, normal hearing, no scleral icterus. Lungs: non-labored respiration. Heart: Regular rate. Abdomen: Soft, tender An right lower quadrant, non-distended, normal bowel sounds, no masses. Some flank tenderness on the right : deferred Musculoskeletal: Normal range of motion. Neurologic: Awake, alert and oriented x 3, no gross focal neurological deficits Psychiatric: Cooperative, appropriate mood and affect. Results - Labs CBC & Chem 7: 05/23/18 15:50 05/23/18 15:50 Labs: Laboratory Results - last 24 hr 05/23/18 05/23/18 05/23/18 15:50 15:50 20:05 WBC 12.6 H RBC 4.32 Hgb 13.4 Hct 39.4 MCV 91.2 MCH 30.9 MCHC 33.9 RDW 13.7 Plt Count 212 MPV 9.3 Neut % (Auto) 91.1 H Lymph % (Auto) 5.6 L [place] % (Auto) 3.1 Eos % (Auto) 0.0 Baso % (Auto) 0.2 Neut # (Auto) 11.5 H Lymph # (Auto) 0.7 L [place] # (Auto) 0.4 Eos # (Auto) 0.0 Baso # (Auto) 0.0 WBC Differential . Differential Comment Auto diff final Sodium 139 Potassium 3.4 L Chloride 105 Carbon Dioxide 19.2 L Anion Gap 15 BUN 8 Creatinine 0.53 Estimated GFR Greater than 89 Random Glucose 108 H Calcium 8.8 Total Bilirubin 0.3 AST 14 L ALT 25 Alkaline Phosphatase 52 Total Protein 7.3 Albumin 3.9 Urine Color Yellow Urine Clarity Clear Urine pH 6.0 Ur Specific [place] 1.015 Urine Protein Negative Urine Glucose (UA) 50 Urine Ketones 80 or greater Urine Occult Blood Negative Urine Nitrate Negative Urine Bilirubin Negative Urine Urobilinogen Less than 2 Ur Leukocyte Esterase Negative Urine RBC 1 Urine WBC 2 Ur Squamous Epith Cells <1 Micro UA Comment Cath-culture not ind Urine Culture Comments Cath-cult not ind - Imaging Impressions Abdomen Ultrasound 05/23/18 15:18 CONCLUSION: 1. Minimal prominence of the collecting system of the right kidney and mild amount of perinephric fluid. 2. Hepatomegaly without focal lesion. Abdomen MRI 05/23/18 21:08 CONCLUSION: 1. Abnormal appearance to the right kidney with moderate hydronephrosis and dilation of the proximal right ureter down to the level of L3 (the uterus extends up to the L4-5 level). There is also perinephric fluid suggesting pyelosinus extravasation. Since the level of obstruction is superior to the uterus, this suggests the possibility of an obstructing stone (stones may be nondetectable on MR). Caprini VTE Risk Assessment Caprini VTE Risk Assessment: No/Low Risk (score <= 1) Caprini Risk Assessment Model: Point Value = 1 Point Value = 2 Point Value = 3 Point Value = 5 Age 41-60 Minor surgery BMI > 25 kg/m2 Swollen legs Varicose veins or History of unexplained or recurrent spontaneous Oral contraceptives or hormone replacement Sepsis (< 1 month) Serious lung disease, including pneumonia (< 1 month) Abnormal pulmonary function Acute myocardial infarction Congestive heart failure (< 1 month) History of inflammatory bowel disease Medical patient at bed rest Age 61-74 Arthroscopic surgery Major open surgery (> 45 min) Laparoscopic surgery (> 45 min) Malignancy Confined to bed (> 72 hours) Immobilizing plaster cast Central venous access Age >= 75 History of VTE Family history of VTE Factor V Leiden Prothrombin [id number] Lupus anticoagulant Anticardiolipin antibodies Elevated serum homocysteine Heparin-induced thrombocytopenia Other congenital or acquired thrombophilia Stroke (< 1 month) Elective arthroplasty Hip, pelvis, or leg fracture Acute spinal cord injury (< 1 month) Prophylaxis Regimen: Total Risk Factor Score Risk Level Prophylaxis Regimen 0-1 Low Early ambulation 2 Moderate Order ONE of the following: *Sequential Compression Device (SCD) *Heparin 5000 units SQ BID 3-4 Higher Order ONE of the following medications: *Heparin 5000 units SQ TID *Enoxaparin/Lovenox 40 mg SQ daily (WT < 150 kg, CrCl > 30 mL/min) *Enoxaparin/Lovenox 30 mg SQ daily (WT < 150 kg, CrCl > 10-29 mL/min) *Enoxaparin/Lovenox 30 mg SQ BID (WT < 150 kg, CrCl > 30 mL/min) AND/OR *Sequential Compression Device (SCD) 5 or more Highest Order ONE of the following medications: *Heparin 5000 units SQ TID (Preferred with Epidurals) *Enoxaparin/Lovenox 40 mg SQ daily (WT < 150 kg, CrCl > 30 mL/min) *Enoxaparin/Lovenox 30 mg SQ daily (WT < 150 kg, CrCl > 10-29 mL/min) *Enoxaparin/Lovenox 30 mg SQ BID (WT < 150 kg, CrCl > 30 mL/min) AND *Sequential Compression Device (SCD) Assessment and Plan - Plan 28-year-old at 15w2d by 6w US ([facility] 11/13/18) Admitted for likely kidney stone 1. : Recommend daily Dopplers, if has any procedure would suggest Heart tones via handheld Doppler immediately prior to and afterwards. - After discharge plan to see patient in office within 1-2 weeks. 2. Right-sided pain, suspected right urolithiasis: MRI and ultrasound did not visualize stone but given hydronephrosis / ureter and clinical picture suspicion is high. Would recommend straining urine, IV hydration, use of Diladid [employer], if refractory pain epidural is an option, and Reglan or Phenergan for nausea. Patient had a high concern that the pain medicine would increased risk of defects, I discussed with her that this is not a known side effect of pain medicine, she is very concerned about Zofran as well, would recommend avoiding this with her but discussed with her and her mother that there is a loose and conflicting evidence around defects with Zofran. 3. Social: Spent a great deal of time attempting to satisfy the patient and mostly her mother, one of her requests was i contact the urologist and primary managing physician. I was able to reach out to the hospitalist and the urologist on-call and informed them of her status, fortunately the patient is a not in acute distress or else I would strongly encourage immediate evaluation, the patient and the mother are aware that the mainstay's of treatment for a kidney stone is pain control, hydration and time, rarely does a procedure need to be done especially during . The patient seems to understand but the mother still seems uncontrollably upset. - Thank you for the consultation, will sign off on the patient, if she or the care team has any further needs or any questions please don't hesitate to call. My cell phone number is [phone]
[2018-05-24] MEDS ORDERED: HYDROmorphone PF Inj 1 MG/ML Ampul IV.PUSH ONE (12:02)
[2018-05-24] MEDS ORDERED: Naloxone Inj 0.4 MG/ML Vial IV.PUSH PRN (12:02)
[2018-05-24] MEDS ORDERED: HYDROmorphone PCA Inj 6 MG/30 ML PCA.VIAL PCA PRN (12:02)
[2018-05-24] MEDS ORDERED: HYDROmorphone PCA Inj 6 MG/30 ML PCA.VIAL PCA ONE (12:31)
--- NOTE | 2018-05-24 12:55 | P.CONURO ---
History of Present Illness Service: Urology Consult date: 05/24/18 Reason for Consult: Right hydronephrosis, possibly stone Primary Care Provider: UNKNOWN Chief Complaint: Abdominal pain History of Present Illness: 28-year-old female here with her mother in the [facility] for suspected right kidney stone. She is at 15 weeks and 2 days by a 6 week ultrasound with estimated due date of 11/13/2018. Her is followed by local OB Dr. Villavicencio at [place]. She states that around 11 AM yesterday she began to have a right sided abdominal pain/right flank pain that radiated down to her right lower quadrant, is intermittent but severe, shortly followed by nausea and vomiting, she feels like "she cannot get comfortable", sitting in a warm shower made the pain better. She presented to the ER last night for evaluation. She Has been given IV hydration, pain medicine and antiemetics She states that she had been sleeping prior to my arrival, she continues to be in pain but is better and somewhat resolved after she receives medication. Denies hematuria, urgency or frequency, denies fever or chills. Denies any history of kidney stones or complications this . No diarrhea or constipation. She was told at ER that possibly has complications but it was not proved. Urology asked to evaluate. Renal US showed mild right hydro. MRI was also done, c/w mod right hydro, no stones visualized. Her Labs and VS are stable, Slightly elevated WBCs. There was no jets evaluation on Sonogram because pelvic part was not done. Based on conversation with IR she does not need Nephrostomy tube placement. Review of Systems All other systems reviewed negative except as stated in HPI PMFSH - History History Provided By: Patient - Medical History Medical History: Medical History (Last Updated 05/24/18 @ 03:12 by Marian Thapa MD) No significant past medical history - Surgical History Surgical History: Surgical History (Last Updated 05/24/18 @ 03:12 by Marian Thapa MD) Hx of appendectomy Hx of tonsillectomy - Tobacco History Second Hand Smoke Exposure: No Tobacco Use In Past 30 Days: No Smoking Status: Never smoker - Alcohol History How Often Do You Have a Drink Containing Alcohol: Never - Substance Use History Substance History: No History of Abuse - Travel History Recent Travel in the [place] Within the Last 8 Weeks: No - Immunization History Tetanus Immunization: <5 Years Medications and Allergies Active Medications: Active Medications Acetaminophen (Tylenol) 650 mg PO Q4H PRN PRN Reason: Temp > 100.4 Al Hydroxide/Mg Hydroxide (Milk Of Magnesia Liq) 30 ml PO Q12H PRN PRN Reason: Mild Constipation Bisacodyl (Dulcolax Supp) 10 mg RECTAL DAILY PRN PRN Reason: SEVERE CONSITIPATION Diphenhydramine HCl (Benadryl) 50 mg PO Q6H PRN PRN Reason: NAUSEA Sodium Chloride (Ns Inj) 1,000 mls @ 100 mls/hr IV.CONT .Q10H [facility] Last Admin: 05/24/18 02:20 Dose: 100 mls/hr Hydromorphone/Sodium Chloride (Dilaudid Nail Setter Inj) 6 mg in 30 mls @ 0 mls/hr INTERNET ARCHITECT UNSCH PRN PRN Reason: per INTERNET ARCHITECT parameters Lactulose (Lactulose Liq) 30 ml PO DAILY PRN PRN Reason: SEVERE CONSITIPATION Metoclopramide HCl (Reglan Inj) 10 mg IV.PUSH Q8H PRN; Protocol PRN Reason: NAUSEA Last Admin: 05/24/18 11:52 Dose: 10 mg Naloxone HCl (Narcan Inj) 0.4 mg IV.PUSH PRN PRN PRN Reason: SEE LABEL COMMENTS Ondansetron HCl (Zofran Odt) 4 mg PO Q6H PRN PRN Reason: NAUSEA OR VOMITING Last Admin: 05/24/18 10:27 Dose: 4 mg Senna/Docusate Sodium (Marlen-Colace) 1 tab PO BID [facility] Last Admin: 05/24/18 08:37 Dose: Not Given Sennosides (Senokot) 17.2 mg PO Q12H PRN PRN Reason: Moderate Constipation Sodium Chloride (Ns Flush) 2 ml IV.FLUSH PRN PRN PRN Reason: FLUSH AFTER USING IV ACCESS Temazepam (Restoril) 15 mg PO HS PRN PRN Reason: INSOMNIA Last Admin: 05/24/18 02:32 Dose: 15 mg Allergies Allergy/AdvReac Type Severity Reaction Status Date / Time cefepime Allergy Severe Anaphylaxis Verified 05/24/18 01:58 ceftaroline fosamil Allergy Severe Anaphylaxis Verified 05/24/18 01:58 Home Medications Medication Instructions Recorded Confirmed Type vit,[id number] 1 tab PO DAILY 05/23/18 05/23/18 History [Prenatabs FA] Physical Exam Vital Signs - 24 hr 05/23/18 15:44 05/23/18 15:54 05/23/18 18:50 Temperature 98.9 F Pulse Rate 75 90 Respiratory Rate 17 17 Blood Pressure 117/76 Pulse Oximetry 100 98 100 05/23/18 22:30 05/24/18 00:35 05/24/18 02:33 Temperature 98.6 F Pulse Rate 85 107 H Respiratory Rate 18 21 20 Blood Pressure 112/74 110/62 Pulse Oximetry 100 05/24/18 06:47 05/24/18 11:00 Temperature 98.3 F Pulse Rate 78 80 Respiratory Rate 19 18 Blood Pressure 117/64 106/64 Pulse Oximetry 100 Physical Exam: GENERAL: This is a well-nourished, well-developed patient, in no apparent distress. HEAD: Atraumatic. Normocephalic. . CARDIOVASCULAR: Regular rate and rhythm without murmurs, gallops, or rubs. RESPIRATORY: Clear to auscultation. Breath sounds equal bilaterally. No wheezes , rales, or rhonchi. GASTROINTESTINAL: Pt is GENITOURINARY: No CVAT, Bladder not distended MUSCULOSKELETAL: Extremities without clubbing, cyanosis, or edema. NEUROLOGICAL: Awake and alert. Laboratory Results - last 24 hr 05/23/18 05/23/18 05/23/18 15:50 15:50 20:05 WBC 12.6 H RBC 4.32 Hgb 13.4 Hct 39.4 MCV 91.2 MCH 30.9 MCHC 33.9 RDW 13.7 Plt Count 212 MPV 9.3 Neut % (Auto) 91.1 H Lymph % (Auto) 5.6 L [place] % (Auto) 3.1 Eos % (Auto) 0.0 Baso % (Auto) 0.2 Neut # (Auto) 11.5 H Lymph # (Auto) 0.7 L [place] # (Auto) 0.4 Eos # (Auto) 0.0 Baso # (Auto) 0.0 WBC Differential . Differential Comment Auto diff final Sodium 139 Potassium 3.4 L Chloride 105 Carbon Dioxide 19.2 L Anion Gap 15 BUN 8 Creatinine 0.53 Estimated GFR Greater than 89 Random Glucose 108 H Calcium 8.8 Total Bilirubin 0.3 AST 14 L ALT 25 Alkaline Phosphatase 52 Total Protein 7.3 Albumin 3.9 Urine Color Yellow Urine Clarity Clear Urine pH 6.0 Ur Specific [place] 1.015 Urine Protein Negative Urine Glucose (UA) 50 Urine Ketones 80 or greater Urine Occult Blood Negative Urine Nitrate Negative Urine Bilirubin Negative Urine Urobilinogen Less than 2 Ur Leukocyte Esterase Negative Urine RBC 1 Urine WBC 2 Ur Squamous Epith Cells <1 Micro UA Comment Cath-culture not ind Urine Culture Comments Cath-cult not ind Result Diagrams: 05/23/18 15:50 05/23/18 15:50 Imaging: ITS Impressions Abdomen Ultrasound 05/23/18 15:18 CONCLUSION: 1. Minimal prominence of the collecting system of the right kidney and mild amount of perinephric fluid. 2. Hepatomegaly without focal lesion. Abdomen MRI 05/23/18 21:08 CONCLUSION: 1. Abnormal appearance to the right kidney with moderate hydronephrosis and dilation of the proximal right ureter down to the level of L3 (the uterus extends up to the L4-5 level). There is also perinephric fluid suggesting pyelosinus extravasation. Since the level of obstruction is superior to the uterus, this suggests the possibility of an obstructing stone (stones may be nondetectable on MR). Assessment and Plan - Plan 28y.o F , with right flank/abd pain, possibly passing a stone. Has right hydro on US - Continue care as per [employer]/Primary team - No acute intervention needed now - Needs IV fluids and pain management - Follow up on Renal /Bladder US ordered by us Additional recommendations after US is reviewed Discussed Condition With: Dr Rosalba LLANES attending who agrees with this plan
--- NOTE | 2018-05-24 12:59 | P.OBGPN ---
Called and spoke to Radiologist Dr. Mchugh Regarding this patient. Plan originally was for a ultrasound of the bladder to assess ureteral jetting to further delineate if she is obstructed or not. It seems patient's mother had declined this and per Dr. Mchugh there was a request placed for the patient to potentially place a percutaneous nephrostomy tube, he also stated that the urologist did not feel comfortable placing a ureteral stent, I believe based on the fact that she is . I am not sure of the indications for a stent in her specific scenario but if reasonable approach would probably be a better option than percutaneous nephrostomy tubes. Plan is for bladder ultrasound to assess ureteral jetting, Dr. Mchugh states that he will go and mortgage loan counselor the patient and the mother on the benefits of this.
--- NOTE | 2018-05-24 14:08 | P.PNADD ---
Addendum to Inpatient Note Reason for Addendum: Additional Documentation Additional information: The patient was uncomfortable from nausea and pain. Discussed with nursing and the patient's family at the bedside. They were waiting for a urological evaluation. The patient was to have a Dilaudid AUDIENCE DEVELOPMENT MANAGER set up. The patient will continue with metoclopramide and Benadryl as needed for nausea. She will use a Dilaudid AUDIENCE DEVELOPMENT MANAGER for pain. Appreciate AUTO RADIATOR SPECIALIST and urology assistance. An ultrasound is currently pending. Continue IV fluids.
--- NOTE | 2018-05-24 14:12 | US ---
EXAM DATE: 05/24/2018 2:02 PM EDT AGE/SEX: 28 years / Female INDICATIONS: Right lower quadrant abdominal pain. Vomiting. Right kidney hydronephrosis. CLINICAL DATA: This is the patient's initial encounter. Patient reports that signs and symptoms have been present for 2 days and indicates a pain score of 7/10. MEDICAL/SURGICAL HISTORY: . 16 weeks . Migraines. Appendectomy. Tonsillectomy. COMPARISON: [facility] – [place], MRI ABDOMEN W/O CONTRAST, 05/23/2018. . MEASUREMENTS: Right Kidney:__14.5 x 6.9 x 7.0 cm Left Kidney:__15.9 x 4.7 x 5.6 cm FINDINGS: Right Kidney: The examination continues to demonstrate dilation of the collecting system on the right . This is mild in severity. The proximal right ureter is dilated as well. No definite stones are seen by ultrasound. Left Kidney: Normal echotexture and cortical thickness. No mass or hydronephrosis. Bladder: The bladder was evaluated in detail. There are ureteral jets identified bilaterally. Other: None. CONCLUSION: 1. There continues to be dilation of the collecting system and proximal ureter on the right. Dilatio n appears similar in appearance compared to previous MRI dated 05/23/2018. On the right. 2. Bilateral ureteral jets were identified within the bladder. Electronically signed by: Suman Mchugh MD 05/24/2018 2:11 PM EDT
[2018-05-24] MEDS: Acetaminophen 325 MG Tablet PO PRN (16:31)
--- NOTE | 2018-05-24 17:57 | P.PNURO ---
Subjective Patient symptoms today: Reviewed Renal and bladder ultrasound results. Bilateral ureteral jets were visualized, mild right collecting system dilation. Her pain has significantly improved. At this time, no surgical intervention indicated. Will follow Objective Vital Signs: Vital Signs 05/23/18 18:50 05/23/18 22:30 05/24/18 00:35 Temperature Pulse Rate 90 85 Respiratory Rate 17 18 21 Blood Pressure 117/76 112/74 Pulse Oximetry 100 100 05/24/18 02:33 05/24/18 06:47 05/24/18 11:00 Temperature 98.6 F 98.3 F Pulse Rate 107 H 78 80 Respiratory Rate 20 19 18 Blood Pressure 110/62 117/64 106/64 Pulse Oximetry 100 05/24/18 12:51 05/24/18 13:28 05/24/18 14:30 Temperature Pulse Rate 82 Respiratory Rate 16 16 Blood Pressure 102/52 L Pulse Oximetry 05/24/18 16:29 05/24/18 16:30 Temperature 98.6 F Pulse Rate 96 H Respiratory Rate 17 Blood Pressure 102/55 L Pulse Oximetry Intake & Output 05/23/18 05/24/18 05/24/18 18:59 06:59 18:59 Intake Total 1000 / 1000 Balance 1000 / 1000 Weight 70.307 kg 70 kg Intake: IV 1000 / 1000 NS Inj 1,000 ML @ 150 mls/hr IV 1000 / 1000 .CONT .Q6H40M [facility] Rx#:[id number] Other: Weight On Admission 70 kg Result Diagrams: 05/23/18 15:50 05/23/18 15:50 Imaging: Impressions Abdomen Ultrasound 05/23/18 15:18 CONCLUSION: 1. Minimal prominence of the collecting system of the right kidney and mild amount of perinephric fluid. 2. Hepatomegaly without focal lesion. Abdomen MRI 05/23/18 21:08 CONCLUSION: 1. Abnormal appearance to the right kidney with moderate hydronephrosis and dilation of the proximal right ureter down to the level of L3 (the uterus extends up to the L4-5 level). There is also perinephric fluid suggesting pyelosinus extravasation. Since the level of obstruction is superior to the uterus, this suggests the possibility of an obstructing stone (stones may be nondetectable on MR). Abdomen/Bladder Ultrasound 05/24/18 00:00 CONCLUSION: 1. There continues to be dilation of the collecting system and proximal ureter on the right. Dilation appears similar in appearance compared to previous MRI dated 05/23/2018. On the right. 2. Bilateral ureteral jets were identified within the bladder. Medications and IVs: Active Medications Generic Name Dose Route Start Last Admin Trade Name Freq PRN Reason Stop Dose Admin Acetaminophen 650 mg 05/24/18 02:03 05/24/18 16:31 Tylenol PO 650 mg Q4H PRN Administration Temp > 100.4 Al Hydroxide/Mg Hydroxide 30 ml 05/24/18 02:03 Milk Of Magnesia Liq PO Q12H PRN Mild Constipation Bisacodyl 10 mg 05/24/18 02:03 Dulcolax Supp RECTAL DAILY PRN SEVERE CONSITIPATION Diphenhydramine HCl 50 mg 05/24/18 10:54 Benadryl PO Q6H PRN NAUSEA Sodium Chloride 1,000 mls @ 150 mls/hr 05/24/18 02:15 05/24/18 14:30 Ns Inj IV.CONT 100 mls/hr .Q6H40M BRUNO Administration Hydromorphone/Sodium Chloride 6 mg in 30 mls @ 0 mls/hr 05/24/18 12:02 12:36 Dilaudid Sampling Expert Inj CONSTRUCTION MANAGEMENT ASSISTANT 0 mls/hr UNSCH PRN Administration per CONSTRUCTION MANAGEMENT ASSISTANT parameters 0 MG/HR Lactulose 30 ml 05/24/18 02:03 Lactulose Liq PO DAILY PRN SEVERE CONSITIPATION Metoclopramide HCl 10 mg 05/24/18 10:51 05/24/18 11:52 Reglan Inj IV.PUSH 10 mg Q8H PRN Administration NAUSEA Protocol Naloxone HCl 0.4 mg 05/24/18 12:02 Narcan Inj IV.PUSH PRN PRN SEE LABEL COMMENTS Ondansetron HCl 4 mg 05/24/18 02:15 05/24/18 16:50 Zofran Odt PO 4 mg Q6H PRN Administration NAUSEA OR VOMITING Senna/Docusate Sodium 1 tab 05/24/18 09:00 05/24/18 08:37 Marlen-Colace PO Not Given BID BRUNO Sennosides 17.2 mg 05/24/18 02:03 Senokot PO Q12H PRN Moderate Constipation Sodium Chloride 2 ml 05/23/18 15:17 Ns Flush IV.FLUSH PRN PRN FLUSH AFTER USING IV ACCESS Temazepam 15 mg 05/24/18 02:03 05/24/18 02:32 Restoril PO 15 mg HS PRN Administration INSOMNIA
[2018-05-25] MEDS: Sod Chloride 0.9% Inj 1,000 ML IV.CONT SCH (03:01)
[2018-05-25] MEDS ORDERED: fentaNYL Citrate Inj 100 MCG/2 ML Ampul IV.PUSH PRN (03:40)
[2018-05-25 05:57] LABS: Baso % (Auto) 0.2 % (0.0-2.0); Eos % (Auto) 0.1 % (0.0-4.0); Hematocrit 31.5 % (35.0-46.0); Hemoglobin 10.9 gm/dL (11.6-15.3); Lymph # (Auto) 1.2 th/mm3 (1.0-4.8); Lymph % (Auto) 13.4 % (9.0-44.0); Mean Corpuscular HGB Conc 34.7 % (32.0-36.0); Mean Corpuscular Hemoglobin 31.6 pg (27.0-34.0); Mean Corpuscular Volume 91.2 fL (80.0-100.0); Mono # (Auto) 0.6 th/mm3 (0.0-0.9); Mono % (Auto) 6.7 % (0.0-8.0); Neut # (Auto) 7.3 th/mm3 (1.8-7.7); Neut % (Auto) 79.6 % (16.0-70.0); Platelet Count 177 th/mm3 (150-450); Red Blood Count 3.45 mil/mm3 (4.00-5.30); Red Cell Distribution Width 13.5 % (11.6-17.2); White Blood Count 9.1 th/mm3 (4.0-11.0)
[2018-05-25 06:19] LABS: Anion Gap 11 meq/L (5-15); Blood Urea Nitrogen 4 mg/dL (7-18); Calcium 8.3 mg/dL (8.5-10.1); Carbon Dioxide 19.6 meq/L (21.0-32.0); Chloride 108 meq/L (98-107); Glomerular Filtration Rate Greater Than 89 mL/min (>89); Glucose,Random 85 mg/dL (74-106); Potassium 3.2 meq/L (3.5-5.1); Sodium 139 meq/L (136-145)
--- NOTE | 2018-05-25 08:21 | P.OBANTE ---
Subjective Interval History: With hydration and pain medication, her flank and RLQT is down to 2 from 10. States straining much sediment. Pain occurs just before she voids and then resolves. no fever. Some nausea with opioids. Objective Vital Signs and I&O: Vital Signs 05/24/18 11:00 05/24/18 12:51 05/24/18 13:28 Temperature 98.3 F Pulse Rate 80 82 Respiratory Rate 18 16 Blood Pressure 106/64 102/52 L 05/24/18 14:30 05/24/18 16:29 05/24/18 16:30 Temperature 98.6 F Pulse Rate 96 H Respiratory Rate 16 17 Blood Pressure 102/55 L 05/24/18 20:33 05/24/18 23:32 05/24/18 23:33 Temperature 98.5 F 98.2 F Pulse Rate 82 91 H Respiratory Rate 18 16 Blood Pressure 108/53 L 109/57 L 05/25/18 01:44 05/25/18 03:56 05/25/18 05:12 Temperature 98.4 F Pulse Rate 91 H Respiratory Rate 16 16 16 Blood Pressure 103/50 L 05/25/18 07:46 05/25/18 08:00 05/25/18 08:05 Temperature 97.8 F Pulse Rate 90 Respiratory Rate 0 L 17 Blood Pressure 111/61 Intake & Output 05/24/18 05/25/18 05/25/18 18:59 06:59 18:59 Intake Total 1000 / 1000 1000 / 1000 Balance 1000 / 1000 1000 / 1000 Weight 70 kg Intake: IV 1000 / 1000 1000 / 1000 NS Inj 1,000 ML @ 150 mls/hr IV 1000 / 1000 1000 / 1000 .CONT .Q6H40M [facility] Rx#:[id number] Other: Weight On Admission 70 kg Lab and Micro Results: Laboratory Results - last 24 hr 05/25/18 05/25/18 05:10 05:10 WBC 9.1 RBC 3.45 L Hgb 10.9 L D Hct 31.5 L MCV 91.2 MCH 31.6 MCHC 34.7 RDW 13.5 Plt Count 177 MPV 9.0 Neut % (Auto) 79.6 H Lymph % (Auto) 13.4 [place] % (Auto) 6.7 Eos % (Auto) 0.1 Baso % (Auto) 0.2 Neut # (Auto) 7.3 Lymph # (Auto) 1.2 [place] # (Auto) 0.6 Eos # (Auto) 0.0 Baso # (Auto) 0.0 WBC Differential . Differential Comment Auto diff final Sodium 139 Potassium 3.2 L Chloride 108 H Carbon Dioxide 19.6 L Anion Gap 11 BUN 4 L Creatinine 0.32 L Estimated GFR Greater than 89 Random Glucose 85 Calcium 8.3 L Physical Exam: GENERAL: Well-nourished, well-developed patient. CARDIOVASCULAR: Regular rate and rhythm without murmurs, gallops, or rubs. RESPIRATORY: Breath sounds equal bilaterally. No accessory muscle use. ABDOMEN/GI: Abdomen soft, non-tender. Fundus: [-] GENITOURINARY: External Genitalia: intact and normal in appearance pelvic deferred no CVAT no pain with palpation at this time EXTREMITIES: No cyanosis or edema, non-tender, without signs of DVT. Assessment and Plan - Diagnosis (1) 15 weeks gestation of Code(s): Z3A.15 - 15 weeks gestation of Status: Acute (2) Renal colic on right side Code(s): N23 - Unspecified renal colic Status: Acute - Plan 28-year-old at 15w2d by 6w US ([facility] 11/13/18) Admitted for likely kidney stone 1. : Recommend daily Dopplers, if has any procedure would suggest Heart tones via handheld Doppler immediately prior to and afterwards. - After discharge plan to see patient in office within 1-2 weeks. 2. Right-sided pain, suspected right urolithiasis: MRI and ultrasound did not visualize stone but given hydronephrosis / ureter and clinical picture suspicion is high. Would recommend straining urine, IV hydration, use of Diladid AUTO PARTS PROFESSIONAL, if refractory pain epidural is an option, and Reglan or Phenergan for nausea. Patient had a high concern that the pain medicine would increased risk of defects, I discussed with her that this is not a known side effect of pain medicine, she is very concerned about Zofran as well, would recommend avoiding this with her but discussed with her and her mother that there is a loose and conflicting evidence around defects with Zofran. 3. Social: Spent a great deal of time attempting to satisfy the patient and mostly her mother, one of her requests was i contact the urologist and primary managing physician. I was able to reach out to the hospitalist and the urologist on-call and informed them of her status, fortunately the patient is a not in acute distress or else I would strongly encourage immediate evaluation, the patient and the mother are aware that the mainstay's of treatment for a kidney stone is pain control, hydration and time, rarely does a procedure need to be done especially during . The patient seems to understand but the mother still seems uncontrollably upset. - Thank you for the consultation, will sign off on the patient, if she or the care team has any further needs or any questions please don't hesitate to call. My cell phone number is [phone] 05/25/18 0800 Renal colic better with hydration and pain control opioids make her nauseous straining sediment will discharge home with explicit directions get second outpatient opinion about stent in should symptoms recur
[2018-05-25] MEDS: Senna/Docusate Sodium 8.6/50 MG Tablet PO SCH (09:13)
[2018-05-25] MEDS: Acetaminophen 325 MG Tablet PO PRN ×2 (09:13→11:29)
== END 2018-05-25 13:37 | disposition home or self-care (01) ==
LOC: NEDA 14:40 → NEPD 14:40 → OBSVTOIN 05-24 00:39 → H2E 05-24 11:01
PROVIDERS: ADMIT Obstetrics & Gynecology; ATTEND Obstetrics & Gynecology
DX: R16.0 Hepatomegaly, not elsewhere classified; R10.31 Right lower quadrant pain; Z90.49 Acquired absence of other specified parts of digestive tract; O99.89 Other specified diseases and conditions complicating pregnancy, childbirth and the puerperium; N13.30 Unspecified hydronephrosis; Z3A.15 15 weeks gestation of pregnancy; N23 Unspecified renal colic; O26.832 Pregnancy related renal disease, second trimester; M54.9 Dorsalgia, unspecified; Z88.1 Allergy status to other antibiotic agents